=== PATIENT | female | born 1995 | race Two or more races ===

== ENCOUNTER 2020-08-30 22:21 | Emergency (ER) | payer MEDICAID ==
[~2020-08-30] VITALS: Ht 170.2 cm; Wt 68.0 kg
--- NOTE | 2020-08-30 22:39 | NUR ---
BIBS FROM HOME TO ER BED 16. AAOX4. NOT IN RESP DISTRESS. BREATHING EVEN AND UNLABORED. AMBULATORY. CAME IN FOR SLEEPLESSNESS SINCE SATURDAY. PER PT, "I HAVENT SLEPT SINCE SATURDAY BECAUSE EVERYTIME I TRY TO SLEEP MY BODY JERKS" PT APPEARS ANXIOS. PT REPORTS SHE DRIKING ALCOHOL AND TAKING XANAX SINCE SATURDAY. AWAITING MD FOR EVAL.
[2020-08-30] MEDS ORDERED: CHLO25CA22 PO ×2 (22:56→23:00)
--- NOTE | 2020-08-30 23:04 | NUR ---
Patient discharged to home in stable condition. Written and verbal after care instructions given. Patient verbalizes understanding of instruction. Pt ambulatory with a steady gait
[2020-08-30 23:05] VITALS: BP 134/81
== END 2020-08-30 23:05 | disposition home or self-care (01) ==
LOC: ER 22:24
DX: F10.239 Alcohol dependence with withdrawal, unspecified (principal); Y90.9 Presence of alcohol in blood, level not specified

== ENCOUNTER 2020-10-11 13:29 | Emergency (ER) | payer MEDICAID, OTHER ==
[~2020-10-11] VITALS: Ht 170.2 cm; Wt 65.8 kg
[~2020-10-11 13:29] MED LIST: CHLO25CA22 PO
[2020-10-11 13:38] VITALS: BP 131/75
[2020-10-11] MEDS ORDERED: FLUORESCEIN SODIUM OPHTH 1 EA STRIP ONE (13:51)
[2020-10-11] MEDS ORDERED: ERYT3.5O9 RIGHTEYE (14:27)
== END 2020-10-11 14:45 | disposition home or self-care (01) ==
LOC: ER 13:31
DX: H10.9 Unspecified conjunctivitis (principal)